=== PATIENT | female | born 1955 | race Caucasian/White ===

== ENCOUNTER → 2021-12-16 | Outpatient (CLI) | payer MEDICARE, SELFPAY ==
--- NOTE | 2021-12-16 16:10 | RAD_ITS ---
EXAM: XR CHEST, 2 VIEWS CLINICAL INDICATION: cad cad TECHNIQUE: Frontal and lateral views of the chest. This report was created using [employer] report generation technology. COMPARISON: None. FINDINGS: LUNGS AND PLEURAL SPACES: Unremarkable. No consolidation or edema. No pneumothorax. No effusion. HEART: Unremarkable. Cardiac silhouette not enlarged. MEDIASTINUM: Central airways and mediastinal contour are unremarkable. BONES/JOINTS: There are multilevel degenerative changes in the visualized spine. SOFT TISSUES: Unremarkable. RAD/Chest PA and Lateral IMPRESSION: No acute findings in the chest. Electronically Signed: Jc Yarbrough MD at 5:30 EDT Reading Location ID and State: [facility] / [place] , Service support ,
== END | disposition home or self-care (01) ==
LOC: RAD 16:06
PROVIDERS: PCP Family Medicine; Referring Provider Internal Medicine Cardiovascular Disease; Visit Provider Internal Medicine Cardiovascular Disease
DX: R06.09 Other forms of dyspnea (principal); R07.9 Chest pain, unspecified; I25.10 Atherosclerotic heart disease of native coronary artery without angina pectoris
CPT/HCPCS: 71046

== ENCOUNTER 2021-12-18 07:07 | Day surgery (SDC) | payer MEDICARE, SELFPAY ==
[2021-12-16 17:23] LABS: Absolute Lymphocyte Count 2.17 X10^3/uL (0.83-4.51); Absolute Neutrophil Count 2.6 X10^3/uL (2.0-7.7); Basophil# 0.04 X10^3/uL; Basophil% 0.7 % (0-1); Eosinophils% 6.8 % (0-5); Hemoglobin 11.5 g/dL (12.0-15.0); Lymphocyte # 2.17 X10^3/ul (0.83-4.51); Lymphocyte % 37.1 % (19-41); Mean Corp Hgb Conc 31.9 g/dL (32-36); Mean Corpuscular Hgb 33.6 pg (27.0-32.0); Mean Corpuscular Volume 105.3 fL (81-99); Mean Platelet Vol. 10.4 fl (6.2-12.0); Monocyte# 0.65 X10^3/uL; Monocyte% 11.1 % (0-10); NRBC Flagged by Analyzer 0 % (0-5); Neutrophil # 2.56 X10^3/uL (2.7-7.7); Neutrophil % 43.8 % (47-70); Platelet Count 316 K/mm3 (150-450); RBC Distribution Width CV 13.4 % (11.6-14.6); RBC Distribution Width SD 51.4 fl (35.1-43.9); Red Blood Count 3.42 M/mm3 (4.2-5.4); White Blood Count 5.9 K/mm3 (4.4-11.0)
[2021-12-16 18:02] LABS: Anion Gap 4 (5-15); BUN 13 mg/dL (7-18); BUN/Creat Ratio 15.3 RATIO (10-20); Calcium,Total 9.3 mg/dL (8.5-10.1); Chloride 102 mmol/L (98-107); Creatinine, Serum 0.85 mg/dL (0.55-1.02); EST Glomerular Filtration Rate 71 mL/min (>60); Est Glom Filt Rate - Afr Amer 85 mL/min (>60); Glucose 100 mg/dL (74-106); Magnesium 2.5 mg/dL (1.6-2.6); Potassium 3.8 mmol/L (3.5-5.1); Sodium Level 137 mmol/L (136-145)
[2021-12-17 10:04] VITALS: BMI 20.3
[2021-12-18 08:26] LABS: Blood Gas Specimen Type VEN; VBG BASE EXCESS 1 mmol/L (-1.0-3.5); VBG Bicarbonate 27 mmol/L (22-26); VBG PO2 45 mmHg (25-40); VBG SO2 74 % (50-70); VBG TCO2 29 mmol/L (23-33); VBG pCO2 55.8 mmHg (41-51); VBG pH 7.29 (7.32-7.42)
[2021-12-18 08:26] LABS: Blood Gas Specimen Type VEN; VBG BASE EXCESS 1 mmol/L (-1.0-3.5); VBG Bicarbonate 27 mmol/L (22-26); VBG PO2 41 mmHg (25-40); VBG SO2 70 % (50-70); VBG TCO2 29 mmol/L (23-33); VBG pCO2 53.8 mmHg (41-51); VBG pH 7.31 (7.32-7.42)
[2021-12-18 08:30] LABS: Base Excess 0 mmol/L (-2 to +2); Bicarbonate 25.6 mmol/L (22-26); Blood Gas Specimen Type ART; PO2 79 mmHG (75-100); SO2 94 % (95-99); Total Carbon Dioxide 27 mmol/L; pCO2 48.7 mmHg (35-45); pH 7.33 (7.35-7.45)
--- NOTE | 2021-12-18 09:19 | CL.D_ITS ---
Patient Name: LISA AGUILAR Study Date: 12/18/2021 Performing: Chadd Mcginnis MD Ht: 68.11 inches 173 cm : 1955 Wt: 134.48 lbs 61 kg Age: 66 Gender: female BSA: 1.73 PROCEDURE(S) PERFORMED DC05-(68075)RHC/LHC/COR/LV CLINICAL PROFILE AND INDICATIONS Indications: Other Heart Failure: None Stress/Imaging Stress/Image Study Performed: No CAD Presentations: Other: dyspnea CONCLUSIONS Normal coronary arteries Normal LV size, wall motion,and systolic function Right heart pressures - Normal RECOMMENDATIONS Medical therapy Outpatient stress echocardiogram with measurement of pulmonary pressures pre and post Ranexa 500 mg twice daily DESCRIPTION OF PROCEDURE The patient arrived to the procedure lab. The risks and benefits of the procedure as well as a full d escription of our services here and current unavailability of surgical backup were fully explained to the patient and/or their significant other prior to the catheterization. The Timeout was completed, verifying the correct patient and procedure. The patient's procedural site was prepped and draped in the usual fashion. Local anesthetic was given subcutaneously to right brachial region with Lidocaine 2%. Local anesthetic was given subcutaneously to right radial region with Lidocaine 2%. Using a modif ied Seldinger technique, arterial access was obtained via the right radial artery, a 6 Fr fistula she ath was inserted. A 7Fr thermal dilution catheter was inserted and right heart pressures were record ed, it was then advanced to PA position for cardiac outputs. Thermal dilution cardiac outputs were th en recorded. O2 saturations were then obtained. The Thermal dilution catheter was then removed. Right Coronary Artery selective angiography was then performed in multiple views using a 5 F r. 4.0 [place] catheter. Left Coronary Artery selective angiography was performed in multiple views usi ng a 5 Fr. 4.0 [place] catheter. Left Ventriculography was performed in CANCINO projection using a 5 Fr. Pi gtail catheter. LV to AO pullback pressures were then recorded.The arterial sheath was pulled and a T R Band was applied for hemostasis-9 cc air. The venous sheath was then pulled and manual compression applied until hemostasis achieved CORONARY ANGIOGRAPHY DOMINANCE: Right Dominant LEFT HEART ASSESSMENT Left Ventricular Ejection Fraction: by LV Gram 65 % Normal LV wall motion Normal Left Ventricular systolic function Normal Left Ventricular systolic function RIGHT HEART ASSESSMENT Thermal CO: 3.22 Thermal CI: 1.86 Piper CO: 7.36 Piper CI: 4.25 PW: 01/19 6 PA: 17/4 9 RV: 18/-1 4 RA: 3 1 PVR: 75 SVR: 1739 Right Heart pressures - normal LEFT MAIN: Angiographically normal LEFT ANTERIOR DESCENDING ARTERY: Angiographically normal CIRCUMFLEX ARTERY: Angiographically normal RIGHT CORONARY ARTERY: Angiographically normal COMPLICATIONS No Complications PROCEDURE MEDICATIONS Versed 1 mg IV Fentanyl 50 mcg IV Oxygen: 2 L/min via nasal cannula Heparin given IA 12/18/2021 08:24:26 SUMMARY OF HEMODYNAMIC DATA Time AIR REST ECG 07:27:18 RA 4/3 (1) SV 08:19:11 RV 18/-1, 4 08:19:26 PA 17/4 (9) PA 08:19:41 PW 01/19 (6) PV 08:19:57 PA 18/4 (9) 08:22:55 RV 18/-1, 3 08:23:06 RA 4/2 (1) 08:23:17 AO 90/56 (71) SA 08:26:09 LV 72/-4, 7 08:32:03 LV 75/-4, 3 08:32:30 LV 70/-1, 6 08:33:21 LVp 71/0, 7 08:33:26 AOp 91/53 (72) 08:33:33 Type SV CO (l/m) CI (l/m/ HR Time AIR REST Thermal 47.40 3.22 1.86 68 07:27:18 Piper 108.20 7.36 4.25 68 07:27:18 Label % O2 Pres/Loc Time AIR REST AO 94 PV 08:35:44 PA 70 PA 08:35:49 RA 74 SV 08:35:54 Signed By Chadd Mcginnis MD On 12/18/2021 09:18:48 Chadd Mcginnis MD
== END 2021-12-18 11:35 | disposition home or self-care (01) ==
LOC: CLSP 07:09
PROVIDERS: PCP Family Medicine; Visit Provider Internal Medicine Cardiovascular Disease
DX: R06.00 Dyspnea, unspecified (principal); E03.9 Hypothyroidism, unspecified; M19.90 Unspecified osteoarthritis, unspecified site; Z79.899 Other long term (current) drug therapy
CPT/HCPCS: 36415; 80048; 82803; 83735; 84443; 85025; 93460; 99152; 99153; J7040; Q9967; C1751; C1769; C1894

== ENCOUNTER → 2022-01-14 | Outpatient (CLI) | payer MEDICARE, SELFPAY ==
--- NOTE | 2022-01-14 10:31 | STE_ITS ---
Reason For Study: Dyspnea; Chest Pain Stress Results Protocol: Kristopher Protocol Maximum Predicted HR: 153 bpm Target HR: 130 bpm % Maximum Predicted HR: 108 % Heart Stage Duration Rate BP Comment (mm:ss) (bpm) Baseline 66 98/62 No Chest Pain; SPO2 99% Kristopher Protocol Stage I 3:00 130 122/70No Chest Pain; SPO2 99% Kristopher Protocol Stage II 3:00 162 130/62No Chest Pain; Mod Dyspnea; SPO2 98%; Ed Arms Aching Kristopher Protocol Stage No Chest Pain; SPO2 99%; Mod to Severe Dyspnea; Ed III 3:00 166 164/60Arms Aching Recovery 78 108/62No Chest Pain; No Dyspnea; SPO2 100% Stress Duration: 9:00 mm:ss Maximum Stress HR: 166 bpm METS: 10 Baseline Echocardiogram Findings Stress Echo Wall motion Data Resting WM Intermediate WM Stress WM Doppler Measurements & Calculations MV E max kellee: 90.1 cm/sec TR max kellee: 244.1 cm/sec MV A max kellee: 46.7 cm/sec TR max P.4 mmHg MV E/A: 1.9 ECHO/Stress Test Echo w/o Contrast Interpretation Summary Exercise stress echo. 66-year-old lady with a history of dyspnea. Stress EKG demonstrates normal sinus rhythm at rest with a rate of 66 bpm resti ng blood pressure is 98/62 mmHg. The patient exercised according to the regular Kristopher protocol for t otal duration of 9 minutes completing stage III of the Kristopher protocol the maximum heart rate attai vanita was 169 bpm with 110% of max impacted heart rate the maximum workload was 10.4 metabolic equival ents. At rest there were no ST or T wave changes noted to suggest ischemia and at peak exercise ups loping ST changes only were noted with did not meet the criteria for ischemia. No clinical angina was noted the patient did complain of moderate dyspnea in stage II pulse oximetry remained at 99 to 100%. There was moderate to severe dyspnea at peak exercise necessitating termination of th e test. There was mild bilateral arm aching noted of questionable significance. The peak blood pr essure was 164/60 mmHg. Stress echocardiogram. The resting echocardiogram demonstrated preserved ejection fraction estimated t o be 55%. The patient exercised according to Kristopher protocol for 9 minutes and at peak exercise the es timated ejection fraction was noted to be 65% there was contraction of all noland and reduction i n low ventricular cavity size. No new wall motion abnormalities were noted to suggest ischemia. T he right ventricular systolic pressure at rest was approximately 16 mmHg with a peak of 32 mmHg. Conclusion: Normal exercise stress echo at a high workload with no ischemic changes noted. Dyspnea of unknown etiology. Ordering Physician: Chadd Mcginnis Referring Physician: Chadd Mcginnis Performed By: Bertha Damon RDCS
== END | disposition home or self-care (01) ==
LOC: CVS 10:30
PROVIDERS: PCP Family Medicine; Referring Provider Internal Medicine Cardiovascular Disease; Visit Provider Internal Medicine Cardiovascular Disease
DX: R06.09 Other forms of dyspnea (principal); R06.02 Shortness of breath
CPT/HCPCS: 93017; 93350